=== PATIENT | female | born 1995 | race Caucasian/White ===

== ENCOUNTER 2020-05-02 08:00 | Outpatient (CLI) | payer BC, OTHER ==
[2020-05-02 21:42] LABS: CANDIDA GROUP DNA NEGATIVE (NEGATIVE); CANDIDA KRUSEI DNA NEGATIVE (NEGATIVE); TRICHOMONAS VAGINALIS DNA NEGATIVE (NEGATIVE)
== END 2020-05-02 23:59 | disposition home or self-care (01) ==
LOC: LAB.R 08:00
PROVIDERS: ATTEND Advanced Practice Midwife
DX: N76.0 Acute vaginitis (principal)
CPT/HCPCS: 87661; 87801

== ENCOUNTER 2021-10-06 01:39 | Emergency (ER) | payer OTHER ==
[2021-10-06 01:58] LABS: BILIRUBIN,URINE NEGATIVE (NEGATIVE); GLUCOSE, URINE (UA) NEGATIVE (NEGATIVE); KETONES,URINE (UA) NEGATIVE (NEGATIVE); LEUKOCYTE ESTERASE, URINE NEGATIVE (NEGATIVE); NITRITE,URINE NEGATIVE (NEGATIVE); OCCULT BLOOD,URINE NEGATIVE (NEGATIVE); PH,URINE 7.5 PH (5.0-7.5); PROTEIN,URINE NEGATIVE (NEGATIVE); UROBILINOGEN,URINE 0.2 (NORMAL) E.U./dL (NORMAL)
[2021-10-06 01:59] LABS: CLARITY,URINE CLEAR (CLEAR); HCG UR QUAL NEGATIVE
--- NOTE | 2021-10-06 02:22 | ED Physician Documentation ---
PD HPI ABD PAIN - Stated complaint Stated Complaint: FEMALE - Chief complaint Chief Complaint: Abd Pain - History obtained from History obtained from: Patient - History of Present Illness Timing - onset: Yesterday Timing - details: Gradual onset, Intermittant Pain level now: 0 Quality: Cramping, Pain Location: Other (across lower abdomen, predomninantly suprapubic) Improved by: Other (no amelioraing factors) Worsened by: Other (no exacerbating factors) Associated symptoms: Diarrhea (some loose stools but not consistently diarrheal), Hematochezia (one episode of BRBPR). No: Fever, Nausea, Vomiting Similar symptoms before: Has not had sx before Recently seen: Not recently seen - Additional information Additional information: c/o episodic lower abdominal cramping pain, predominantly suprapubic, since yesterday. No inciting event, no exacerbating nor ameliorating factors. Denies h/o similar symptoms. She describes episodic painful spasm of her anus although not temporally related to defecation. Review of Systems Constitutional: denies: Fever Cardiac: reports: Reviewed and negative Respiratory: reports: Reviewed and negative GI: reports: Abdominal Pain, Diarrhea. denies: Nausea, Vomiting, Constipation : denies: Dysuria, Frequency, Vaginal bleeding, Now [facility] PD PAST MEDICAL HISTORY - Past Medical History Past Medical History: No Cardiovascular: None Respiratory: None Neuro: None Endocrine/Autoimmune: None GI: None [employer]: None : None HEENT: None Psych: None Musculoskeletal: None Derm: None - Past Surgical History Past Surgical History: No - Present Medications Home Medications: Ambulatory Orders Medication Instructions Recorded Confirmed No Known Home Medications 10/06/21 10/06/21 - Allergies Allergies/Adverse Reactions: Allergies Allergy/AdvReac Type Severity Reaction Status Date / Time No Known Drug Allergies Allergy Verified 10/06/21 01:52 - Social History Does the pt smoke?: Yes Smoking Status: Current every day smoker Does the pt drink ETOH?: Yes Does the pt have substance abuse?: No - Immunizations Immunizations are current?: No - POLST Patient has POLST: No PD ED PE NORMAL - Vitals Vital signs reviewed: Yes - General General: Alert and oriented X 3, No acute distress, Well developed/nourished - Cardiac Cardiac: RRR, No murmur - Respiratory Respiratory: No respiratory distress, Clear bilaterally - Abdomen Abdomen: Soft, Non tender, Non distended - Back Back: No CVA TTP Results - Vitals Vitals: Vital Signs - 24 hr 10/06/21 10/06/21 10/06/21 01:49 03:47 05:10 Temperature 36.6 C 36.6 C Heart Rate 83 78 72 Respiratory 16 17 16 Rate Blood Pressure 138/84 H 129/81 H 125/72 O2 Saturation 100 99 99 Oxygen O2 Source Room air - Labs Labs: Laboratory Tests 10/06/21 10/06/21 10/06/21 01:50 01:50 02:56 WBC 7.1 RBC 4.34 Hgb 14.3 Hct 42.1 MCV 97.0 MCH 32.9 H MCHC 34.0 RDW 11.9 L Plt Count 211 MPV 9.9 Neut # (Auto) 4.9 Lymph # (Auto) 1.7 Lewis # (Auto) 0.5 Eos # (Auto) 0.1 Baso # (Auto) 0.0 Absolute Nucleated RBC 0.00 Nucleated RBC % 0.0 Sodium Potassium Chloride Carbon Dioxide Anion Gap BUN Creatinine Estimated GFR (MDRD) Glucose Calcium Total Bilirubin AST ALT Alkaline Phosphatase Total Protein Albumin Globulin Albumin/Globulin Ratio Lipase Urine Color YELLOW Urine Clarity CLEAR Urine pH 7.5 Ur Specific Jackson 1.020 Urine Protein NEGATIVE Urine Glucose (UA) NEGATIVE Urine Ketones NEGATIVE Urine Occult Blood NEGATIVE Urine Nitrite NEGATIVE Urine Bilirubin NEGATIVE Urine Urobilinogen 0.2 (NORMAL) Ur Leukocyte Esterase NEGATIVE Ur Microscopic Review NOT INDICATED Urine Culture Comments NOT INDICATED Urine HCG, Qual NEGATIVE 10/06/21 02:56 WBC RBC Hgb Hct MCV MCH MCHC RDW Plt Count MPV Neut # (Auto) Lymph # (Auto) Lewis # (Auto) Eos # (Auto) Baso # (Auto) Absolute Nucleated RBC Nucleated RBC % Sodium 135 Potassium 4.2 Chloride 105 Carbon Dioxide 22 Anion Gap 8.0 BUN 14 Creatinine 0.7 Estimated GFR (MDRD) 104 Glucose 102 H Calcium 8.8 Total Bilirubin 0.3 AST 18 ALT 27 Alkaline Phosphatase 53 Total Protein 6.3 L Albumin 3.6 Globulin 2.7 Albumin/Globulin Ratio 1.3 Lipase 38 Urine Color Urine Clarity Urine pH Ur Specific Jackson Urine Protein Urine Glucose (UA) Urine Ketones Urine Occult Blood Urine Nitrite Urine Bilirubin Urine Urobilinogen Ur Leukocyte Esterase Ur Microscopic Review Urine Culture Comments Urine HCG, Qual PD MEDICAL DECISION MAKING - ED course Complexity details: reviewed results, re-evaluated patient, considered differential, d/w patient ED course: Patient is in NAD on initial evaluation as well as reevalution after tests resulted. Her abdominal exam is benign with no tenderness to palpation throughout. Her UA, CBC, and ER abdominal panel are all unremarkable and urine HCG negative. Further testing, including imaging, is not indicated at this time. Doubt appendicits given benign abdominal exam. lack of pain with defecation would be inconsistent with anal fissure. Lack of tenderness and lack of any apparent discomfort in ED would suggest against ovarian torsion, ruptured/hemorrhagic ovarian cyst. She is instructed to return if symptoms worsen in any way, follow up with her primary care provider in 2-3 days if symptoms do not resolve Departure - Departure Disposition: 01 Home, Self Care Clinical Impression: Abdominal pain Condition: Good Instructions: ED Abdominal Pain Female Non-Specific Abdominal Pain Comments: The tests performed tonight (urinalysis, blood tests) are unremarkable; there are no concerning nor diagnostic findings. The cause of your symptoms is unclear at this time. Further testing can be undertaken by your primary care provider if the symptoms persist. Return to the emergency department if your symptoms worsen Discharge Date/Time: 10/06/21 05:10
[2021-10-06 02:59] LABS: BASOPHILS % (AUTO) 0.3 %; EOSINOPHILS # (AUTO) 0.1 10^3/uL (0.0-0.7); EOSINOPHILS % (AUTO) 0.8 %; HCT - HEMATOCRIT 42.1 % (37.0-47.0); HGB - HEMOGLOBIN 14.3 g/dL (12.0-16.0); LYMPHOCYTES # (AUTO) 1.7 10^3/uL (1.5-3.5); LYMPHOCYTES % (AUTO) 24.1 %; MEAN CORPUSCULAR HEMOGLOBIN 32.9 pg (27.0-31.0); MEAN PLATELET VOLUME 9.9 fL (7.9-10.8); MONOCYTES # (AUTO) 0.5 10^3/uL (0.0-1.0); MONOCYTES % (AUTO) 6.4 %; NEUTROPHILS # (AUTO) 4.9 10^3/uL (1.5-6.6); NEUTROPHILS % (AUTO) 68.3 %; PLT - PLATELET COUNT 211 10^3/uL (130-450); RED BLOOD COUNT 4.34 10^6/uL (4.20-5.40); RED CELL DISTRIBUTION WIDTH 11.9 % (12.0-15.0); WHITE BLOOD COUNT 7.1 x10^3/uL (4.8-10.8)
[2021-10-06 03:13] LABS: ALBUMIN 3.6 g/dL (3.2-5.5); ALBUMIN/GLOBULIN RATIO 1.3 (1.0-2.2); BILIRUBIN,TOTAL 0.3 mg/dL (0.2-1.0); CALCIUM 8.8 mg/dL (8.5-10.3); CREATININE 0.7 mg/dL (0.4-1.0); POTASSIUM 4.2 mmol/L (3.5-5.0); TOTAL PROTEIN 6.3 g/dL (6.7-8.2)
[2021-10-06 05:12] VITALS: BP 125/72
== END 2021-10-06 05:10 | disposition home or self-care (01) ==
LOC: ED 01:39
DX: R10.13 Epigastric pain (principal); F17.200 Nicotine dependence, unspecified, uncomplicated
CPT/HCPCS: 36415; 80053; 81001; 81003; 81025; 83690; 85025; 87086; 99282; 99283